=== PATIENT | female | born 1950 | race Caucasian/White ===

== ENCOUNTER 2016-10-06 07:53 | Inpatient (IN) | payer MEDICARE, BC ==
--- NOTE | 2016-09-23 18:01 | HP ---
HISTORY AND PHYSICAL: DATE OF ADMISSION/SURGERY: 10/06/16 PROCEDURE: Left total hip arthroplasty. CHIEF COMPLAINT: Left hip pain. HISTORY OF PRESENT ILLNESS: Ms. Avila is a 66-year-old female with complaints of left hip pain secondary to severe osteoarthritis. She has failed conservative management and has elected to proceed with a left total hip arthroplasty. PAST MEDICAL HISTORY: Hypothyroidism, hypertension, osteoarthritis. PAST SURGICAL HISTORY: Left thumb arthroplasty, left carpal tunnel release, left wrist tendon repair, left hammer toe repair, and oophorectomy. CURRENT MEDICATIONS: 1. Ibuprofen. 2. Levothyroxine. 3. Lisinopril/hydrochlorothiazide. 4. Meclizine. 5. Aspirin. 6. Multivitamin. ALLERGIES: No known drug allergies. FAMILY HISTORY: Breast cancer, lung cancer, ovarian cancer, and heart disease. REVIEW OF SYSTEMS: A complete 14-point review of systems was reviewed with the patient. Positive for hypothyroidism. She never had a blood clot or anesthesia problems. PHYSICAL EXAMINATION GENERAL: She is well developed, well nourished, in no acute distress. VITAL SIGNS: She stands 5 feet 6 inches tall, weighs 165 pounds. Her blood pressure is 152/91. Her heart rate is 73. HEENT: Normocephalic, atraumatic. NECK: Supple. No palpable lymph nodes. Trachea is midline. PULMONARY: The lungs are clear to auscultation bilaterally. No wheezes, rhonchi, or rales. CARDIO: Regular rate and rhythm. Strong S1, S2. No murmurs, gallops, or rubs. ABDOMEN: Soft, nontender, nondistended. NEUROLOGIC: She is alert and oriented x3. Cranial nerves II through XII are intact. MUSCULOSKELETAL: Left lower extremity, the skin is intact. She has limited range of motion with internal and external rotation of the left hip. She walks with a slightly antalgic type gait. Her lower extremity muscle group strengths are intact at 5/5. She has 2+ dorsalis pedis pulses and intact sensation. ASSESSMENT AND PLAN: Ms. Avila is a 66-year-old female with complaints of left hip pain secondary to advanced osteoarthritis. She has elected to proceed with a left total hip arthroplasty. The surgery is scheduled for 10/06/[address] Canas discussed the risks and benefits of the surgery with her today and all of her answers were answered. Percocet, Colace, and Coumadin were sent to her pharmacy for postoperative pain control and DVT prophylaxis. She was instructed not to take the Coumadin prior to the surgery. She was also instructed to stop her aspirin 5 days prior to the surgery. She will follow up with Dr. Canas 2 weeks after the surgery for a postop appointment. JOSE CORNELL [id number]/[facility] #: [id number] MTDD
[~2016-10-06 07:53] MED LIST: Buffered Lidocaine 1% SYR 3ML* 3 ML/SYR SYRINGE INTRADERM ONE; Famotidine IV* 10 MG/ML 2 ML (20 mg) IV ONE; Gabapentin CAP(*) 300 MG PO ONE; Metoclopramide TAB* 10 MG PO ONE; NS 0.9% 1000 ML* 1,000 ML IV SCH; celeCOXIB CAP* 200 MG PO ONE
[2016-10-06] MEDS ORDERED: Famotidine IV* 10 MG/ML 2 ML (20 mg) ONE (08:32)
[2016-10-06] MEDS ORDERED: Gabapentin CAP(*) 300 MG ONE ×2 (08:32→08:55)
[2016-10-06] MEDS ORDERED: ceFAZolin 2 GM PREMIX (*) 2 GM/50 ML BAG IVPB ONE (08:32)
[2016-10-06] MEDS ORDERED: Metoclopramide TAB* 10 MG ONE ×2 (08:32→08:55)
[2016-10-06] MEDS ORDERED: celeCOXIB CAP* 100 MG ONE ×2 (08:32→08:55)
[2016-10-06] MEDS ORDERED: Buffered Lidocaine 1% SYR 3ML* 3 ML/SYR SYRINGE ONE (08:33)
[2016-10-06] MEDS ORDERED: Lidocaine 2% MPF* 2 ML VIAL ONE (09:30)
[2016-10-06] MEDS ORDERED: Ondansetron INJ* 2 MG/ML VIAL ONE (09:30)
[2016-10-06] MEDS ORDERED: Dexamethasone IV* 4 MG/ML 1 ML (4 MG) ONE (09:30)
[2016-10-06] MEDS ORDERED: Propofol* 10 MG/ML 20 ML BTL IV PUSH ONE (09:30)
[2016-10-06] MEDS ORDERED: fentaNYL* 50 MCG/ML 5 ML VIAL (250 MCG VIAL) ONE (09:30)
[2016-10-06] MEDS ORDERED: KETAMINE HCL* 50 MG/ML 10 ML VIAL ONE (09:30)
[2016-10-06] MEDS ORDERED: Midazolam* 1 MG/ML 5 ML VIAL (5 MG) ONE (09:30)
[2016-10-06] MEDS ORDERED: Cisatracurium* 2 MG/ML MDV 10 ML ONE (09:30)
[2016-10-06] MEDS ORDERED: Ketorolac INJ* 30 MG/ML 1 ML VIAL ONE (09:30)
[2016-10-06] MEDS ORDERED: Bupivacaine 0.5% SDV PF* 30 ML VIAL ONE (09:38)
[2016-10-06] MEDS ORDERED: DiMENhydriNATE IV* 50 MG/ML VIAL IV PUSH PRN (11:38)
[2016-10-06] MEDS ORDERED: Ondansetron INJ* 2 MG/ML VIAL IV PRN (11:38)
[2016-10-06] MEDS ORDERED: HYDROmorphone INJ* 1 MG/ML CARPUJECT SYRINGE IV PRN (11:38)
[2016-10-06] MEDS ORDERED: fentaNYL* 50 MCG/ML 2 ML VIAL (100 MCG VIAL) IV PRN (11:38)
[2016-10-06] MEDS ORDERED: Phenylephrine IV* 40 MCG/ML 10 ML SYRINGE ONE (11:50)
[2016-10-06] MEDS ORDERED: EPHEDrine (Pressors)* 50 MG/ML VIAL ONE (11:50)
--- NOTE | 2016-10-06 12:22 | RAD ---
INDICATION: Total left hip replacement surgery, intraoperative study. COMPARISON: Comparison is made with a prior x-ray study of the left hip from May 04, 2016. TECHNIQUE: A AP single portable film of the left hip was obtained in the operating room. FINDINGS: The acetabular prostheses appears to be in normal position. There is a femoral prostheses template present. IMPRESSION: INTRAOPERATIVE CONTROL FILM.
[2016-10-06] MEDS ORDERED: HYDROmorphone INJ* 1 MG/ML CARPUJECT SYRINGE ONE (12:27)
[2016-10-06] MEDS ORDERED: Magnesium Hydroxide LIQ* 30 ML UDC PO PRN (13:03)
[2016-10-06] MEDS ORDERED: Ondansetron TAB* 4 MG PO PRN (13:03)
[2016-10-06] MEDS ORDERED: oxyCODONE/Acetamin 5/325 MG* TAB PO PRN (13:03)
[2016-10-06] MEDS ORDERED: diPHENhydraMINE IV* 50 MG/ML 1 ml VIAL (BENADRYL) IV PRN (13:03)
[2016-10-06] MEDS ORDERED: Bisacodyl SUPP* 10 MG SUPP PR PRN (13:03)
[2016-10-06] MEDS ORDERED: Polyethylene Glycol 3350* 17 GM PACKET PO PRN (13:03)
[2016-10-06] MEDS ORDERED: Acetaminophen TAB* 325 MG PO PRN (13:03)
[2016-10-06] MEDS ORDERED: Morphine INJ* 2 MG/ML 1 ML CARPUJECT IV PRN (13:03)
[2016-10-06] MEDS ORDERED: Meclizine TAB* 12.5 MG PO PRN (13:08)
--- NOTE | 2016-10-06 14:00 | RAD ---
Indication: Left hip arthroplasty 2 views of left hip and an AP view the pelvis and sheath left hip replacement in satisfactory position. No loosening is noted. Pelvic ring is intact. IMPRESSION: LEFT HIP REPLACEMENT IN SATISFACTORY POSITION.
[2016-10-06] MEDS ORDERED: oxyCODONE/Acetamin 5/325 MG* TAB ONE (14:38)
[2016-10-06] MEDS ORDERED: Warfarin TAB(*) 6 MG PO ONE (17:00)
[2016-10-06] MEDS: ceFAZolin 1 GM in Dextrose (*) 1 GM/50 ML BAG IVPB SCH (17:07)
[2016-10-06] MEDS: oxyCODONE/Acetamin 5/325 MG* TAB PO PRN (20:23)
[2016-10-06] MEDS: Docusate CAP* 100 MG PO SCH (20:23)
[2016-10-07] MEDS: ceFAZolin 1 GM in Dextrose (*) 1 GM/50 ML BAG IVPB SCH ×2 (01:09→08:13)
[2016-10-07] MEDS: oxyCODONE TAB* 5 MG TAB PO PRN (01:16)
[2016-10-07] MEDS: Levothyroxine TAB* 75 MCG TAB PO SCH (06:13)
[2016-10-07] MEDS: oxyCODONE/Acetamin 5/325 MG* TAB PO PRN ×3 (07:27→18:16)
--- NOTE | 2016-10-07 07:33 | PN ---
Progress Note - Progress Note SOAP: Subjective: Pt. reports pain is controlled and she is doing well. Objective: LLE - thigh soft, dressing c/d/i. distally nvi with pf/df, full sens lt, 2+ dp pulse. Vital Signs: Temp Pulse Resp BP Pulse Ox 98.3 F 71 18 119/65 99 10/07/16 03:10 10/07/16 03:10 10/07/16 07:27 10/07/16 03:10 10/07/16 03:10 Assessment: 66 yo F pod 1 s/p LTHA Plan: xrays satisfactory. AM labs pending coumadin with lovenox bridge. prn analgesia pt/ot - wbat lle with post hip precautions. possible d/c to home tomorrow with vns
[2016-10-07 08:10] LABS: Hematocrit 27 % (35-47); Hemoglobin 9.3 g/dl (12.0-16.0)
[2016-10-07] MEDS: Hydrochlorothiazide TAB* 25 MG PO SCH (08:14)
[2016-10-07] MEDS: Docusate CAP* 100 MG PO SCH ×2 (08:15→19:39)
[2016-10-07] MEDS: Lisinopril TAB* 10 MG PO SCH (08:15)
[2016-10-07 08:18] LABS: BUN/Creatinine Ratio 16.1 (8-20); Calcium 8.7 mg/dL (8.6-10.3); EGFR African American 124.2 (>60); EGFR Non-African American 96.6 (>60); Potassium 3.8 mmol/L (3.5-5.0)
[2016-10-07] MEDS: Enoxaparin(*) 30 MG/0.3 ML SYR SUBCUT SCH (09:36)
[2016-10-07] MEDS ORDERED: Pneumococcal *Vac Polyvalent 0.5 ML VIAL IM ONE (10:00)
--- NOTE | 2016-10-07 10:16 | OP ---
OPERATIVE REPORT: DATE OF OPERATION: 10/06/16 DATE OF : 52 SURGEON: Becky Canas MD SAW MAKER: JOSE Alexander ANESTHESIOLOGIST: Jonh Putnam MD ANESTHESIA: General. PRE-OP DIAGNOSIS: Severe end-stage degenerative osteoarthritis of the left hip joint. POST-OP DIAGNOSIS: Severe end-stage degenerative osteoarthritis of the left hip joint. OPERATIVE PROCEDURE: Left total hip arthroplasty. HARDWARE USED: This is uncemented Ez total hip hardware. For the cup a Tritanium 50B cluster hole shell with 125 mm cancellous bone screw. A 0 degree Polythene insert Trident x3 32D. For the femur an Accolate TMZF 132 degree neck size 3, and a Biolox delta ceramic V40 femoral head 32 -4. COMPLICATIONS: None. SPECIMENS: Femoral head and acetabular bone reaming sent to pathology. ESTIMATED BLOOD LOSS: 500 mL. INDICATIONS: Brief History/Indication: Ms. Avila is a 66-year-old female with years of increasing ly severe left hip pain. She failed conservative treatment with antiinflammatories, pain medication s, physical therapy, activity modification, and ambulatory assistive devices. Radiographs confirmed severe end-stage arthritis of the left hip joint with [id number] contact. She elected to undergo a left total hip arthroplasty due to continued pain and decreased quality of life. Informed consen t was obtained from the patient. She understood the risks of the procedure included but were not li mited to bleeding, infection, damage to nearby structures, continued pain, need for further surgery, intraoperative fracture, nerve palsy, leg length discrepancy, dislocation, hardware failure, loosen ing, stroke, heart attack, blood clot, and . She wished to proceed. INTRAOPERATIVE FINDINGS: Intraoperatively, the patient was noted to have a shallow dysplastic aceta bulum with complete loss of cartilage. She had anterior osteophyte formation along the acetabulum. Femoral head had significant osteopenia with complete loss of cartilage. DESCRIPTION OF PROCEDURE: Ms. Avila was identified in the preanesthesia unit. Her left lower extre mity was marked as the correct operative side. Informed consent was signed and placed in the chart. The patient was taken to the operating room and placed under general anesthesia without difficulty . A Villatoro catheter was placed. She was placed in the right lateral decubitus position on the PEG b oard. Left lower extremity was prepped and draped in the usual sterile fashion. Preop time-out was made to correctly identify the patient's side and site. Appropriate perioperative antibiotics were given within 1 hour of incision. A 12-cm standard posterior hip incision was made with a 10 blade. This was carried down to the late ral fascial layer. Lateral fascia was then incised in line with the skin incision. Charnley retractor was placed and the posterior aspect of the hip joint was visualized. The pirifor mis and conjoint tendons were identified. These were elevated off the posterolateral capsule using the electrocautery and tagged with two #5 Ethibond. Next, standard posterolateral capsular flap was made with electrocautery and also tagged with two #5 Ethibonds. The hip was carefully dislocated. Lesser troch to center of the femoral head measured 55 mm. An os cillating saw was used to make the appropriate femoral neck cut. The femoral head was sent to patho logy. After appropriate placement of retractors, the acetabulum was easily visualized. There was complete loss of cartilage and a dysplastic shallow acetabulum was noted. Electrocautery was used to remove any soft tissue from the cotyloid notch. The acetabulum was seque ntially reamed up to a size 49. A 49 trial had excellent fit. There was a good bleeding bone bed. The final implant chosen was Tritanium cluster hole shell size 50D. This was impacted into the acet abulum without difficulty. Appropriate anteversion and abduction angle were noted. One 25 mm cance llous bone screw was chosen. This was placed in the superior posterior quadrant for extra stability . A 0 degree polyethylene insert Trident x3 was chosen with 32B size. This was impacted into the a cetabular cup without difficulty. Stability of the liner was checked and noted to be stable. Next, attention was turned to preparation of the femur. After appropriate placement of retractors, the proximal femur was easily visualized. Canal finder and box cut osteotome was used to enter the proximal femur. The femur was sequentially broached up to a size 3. Size 3 broach had excellent fi t and appropriate anteversion. A 132 neck trial was chosen as well as a 32 +0 femoral head. Lesser troch to center of the femoral head measured 60. Therefore, the head was replaced with a 32 -4 tri al. This had satisfactory lesser troch to greater head measurement at a length of 56 mm. The hip w as reduced and taken through range of motion. The hip was stable in all positions. There was appro ximate leg length and soft tissue tension. The hip was carefully dislocated and all trials were carefully removed. Final implant chosen was an Accolade TMZF size 3 with a 132 degree neck. This was impacted into the femoral canal without diff iculty. There was good stability in the anteversion. A 32 -4 ceramic V40 femoral head was chosen. This was impacted onto the femoral neck without difficulty. The lesser troch to the center of the femoral head measured 7 mm. This was deemed to be appropriate. The hip was reduced and taken throu gh a range of motion. The hip was stable in all positions. There was good soft tissue tension and a ppropriate leg length. The previously tagged capsule and tendons were reapproximated to the posterior lateral femur through two trochanteric drill holes. The hip was copiously irrigated with sterile saline. The lateral fa scial layer was closed using interrupted #1 Vicryls. The rest of the incision was closed in a layer ed fashion using 0 and 2-0 Vicryls. Skin was closed using running 3-0 Monocryl and Dermabond. Steri le Adaptic, 4 x 4s, and paper tape were placed over this. The patient's anesthesia was reversed without difficulty. She was taken to the PACU in stable condi tion. Intended weightbearing will be weightbearing as tolerated with posterior hip precautions. Intended DVT prophylaxis will be Coumadin with a Lovenox bridge. [id number]/[facility] #: [id number]
[2016-10-07] MEDS ORDERED: Warfarin TAB(*) 4 MG PO ONE (18:00)
[2016-10-08] MEDS: oxyCODONE TAB* 5 MG TAB PO PRN (04:14)
[2016-10-08] MEDS: Levothyroxine TAB* 75 MCG TAB PO SCH (05:36)
[2016-10-08 06:59] LABS: Hematocrit 29 % (35-47); Hemoglobin 9.6 g/dl (12.0-16.0)
--- NOTE | 2016-10-08 07:38 | PN ---
Progress Note - Progress Note SOAP: Subjective: Pt. is doing well, pain controlled, wants to go home. + BM overnight. Objective: LLE - dressing changed, inc c/d/i. distally nvi. Vital Signs: Temp Pulse Resp BP Pulse Ox 98.0 F 96 16 136/75 99 10/08/16 04:11 10/08/16 04:11 10/08/16 06:14 10/08/16 04:11 10/08/16 04:11 Laboratory Results - last 24 hr 10/07/16 10/07/16 10/07/16 07:22 07:22 07:22 Hgb 9.3 L Hct 27 L INR (Anticoag Therapy) 1.10 Sodium 135 Potassium 3.8 Chloride 102 Carbon Dioxide 27 Anion Gap 6 BUN 10 Creatinine 0.62 Est GFR ( Amer) 124.2 Est GFR (Non-Af Amer) 96.6 BUN/Creatinine Ratio 16.1 Glucose 96 Calcium 8.7 10/08/16 10/08/16 06:46 06:46 Hgb 9.6 L Hct 29 L INR (Anticoag Therapy) 1.64 H Sodium Potassium Chloride Carbon Dioxide Anion Gap BUN Creatinine Est GFR ( Amer) Est GFR (Non-Af Amer) BUN/Creatinine Ratio Glucose Calcium Assessment: 66 yo F pod 2 s/p LTHA Plan: wbat with post hip precautions pt/ot plan d/c to home today after 2nd PT
[2016-10-08] MEDS: Hydrochlorothiazide TAB* 25 MG PO SCH (08:55)
[2016-10-08] MEDS: Docusate CAP* 100 MG PO SCH (08:55)
[2016-10-08] MEDS: oxyCODONE/Acetamin 5/325 MG* TAB PO PRN ×2 (08:55→13:00)
[2016-10-08] MEDS: Lisinopril TAB* 10 MG PO SCH (08:55)
[2016-10-08] MEDS: Enoxaparin(*) 30 MG/0.3 ML SYR SUBCUT SCH (10:00)
[2016-10-08 12:33] VITALS: BP 135/75
[2016-10-08] MEDS ORDERED: Warfarin TAB(*) 6 MG PO SCH (17:00)
--- NOTE | 2016-10-10 02:34 | DS ---
DISCHARGE SUMMARY: DATE OF ADMISSION: 10/06/16 DATE OF DISCHARGE: 10/08/16 ADMISSION DIAGNOSIS: Status post left total hip arthroplasty. DISCHARGE DIAGNOSIS: Status post left total hip arthroplasty. CONSULTATIONS: Physical Therapy and Occupational Therapy. CHIEF COMPLAINT: Left hip pain. HISTORY OF PRESENT ILLNESS: Ms. Avila is a 66-year-old female who underwent an elective left total hip arthroplasty as a result of severe osteoarthritis. [facility] prosthesis in satisfactory position. No lucency was noted a nd pelvic ring was intact. REVIEW OF HOSPITAL COURSE: On postop day #1, H and H was 9.3 and 27 and INR was 1.10. The patient was started on warfarin with a Lovenox bridge. Physical therapy and occupational therapy was starte d on that day and physical therapy was weight bearing as tolerated in the lower left extremity. On postop #2, H and H was obtained and it was 9.6 and 29 respectively with INR of 1.64. The patient continued physical therapy and occupational therapy in the morning. She was declared medically and orthopedically stable to be discharge home. POSTOP MEDICATIONS: 1. Colace 100 mg. 2. Percocet 5/325. 3. Warfarin given at 6 mg on , 4 mg on Wednesday, 2 mg on Wednesday, and 2 mg on Wednesday, to be redrawn on Wednesday. DISCHARGE INSTRUCTIONS: The patient will continue physical therapy at home. We will follow hip precautions and weightbearing as tolerated and will follow up in 10 to 14 days posto p for an office visit with Dr. Canas to have roxana removed. JOSE BLUE [id number]/[facility] #: [id number]
== END 2016-10-08 14:20 | disposition home health service (06) | DRG 470 ==
LOC: AA 07:53 → MERGE 10:00 → SSU 14:59
PROVIDERS: ADMIT Orthopaedic Surgery Adult Reconstructive Orthopaedic Surgery; ATTEND Orthopaedic Surgery Adult Reconstructive Orthopaedic Surgery
PROC: 0SRB04A Replacement of Left Hip Joint with Ceramic on Polyethylene Synthetic Substitute, Uncemented, Open Approach (ICD-10-PCS; principal; 2016-10-06 11:00)
DX: M16.12 Unilateral primary osteoarthritis, left hip (principal); I10 Essential (primary) hypertension; E03.9 Hypothyroidism, unspecified; E78.5 Hyperlipidemia, unspecified; Z82.49 Family history of ischemic heart disease and other diseases of the circulatory system; Z80.3 Family history of malignant neoplasm of breast; Z80.41 Family history of malignant neoplasm of ovary; Z80.1 Family history of malignant neoplasm of trachea, bronchus and lung; Z80.0 Family history of malignant neoplasm of digestive organs; Z82.61 Family history of arthritis; Z82.3 Family history of stroke; K21.9 Gastro-esophageal reflux disease without esophagitis; Z96.692 Finger-joint replacement of left hand
CPT/HCPCS: 36415; 80048; 85014; 85018; 85610; 88304; 88311; 90732; A9270-GY; C1713; C1776; J0690; J1100; J1170; J1650; J1885; J2250; J2405; J2704; J3010

== ENCOUNTER 2019-10-12 08:37 | Day surgery (SDC) | payer MEDICARE, BC ==
[~2019-10-12 08:37] MED LIST changes: -Buffered Lidocaine 1% SYR 3ML* 3 ML/SYR SYRINGE INTRADERM ONE; +Buffered Lidocaine 1% SYRIN* 1 ML/SYRINGE INTRADERM ONE; +Dexamethasone IV* 4 MG/ML 1 ML (4 MG) IV SLOW PU ONE; +Dexamethasone IV* 4 MG/ML 1 ML (4 MG) ONE; +Famotidine IV* 10 MG/ML 2 ML (20 mg) ONE; -Gabapentin CAP(*) 300 MG PO ONE; +Lactated Ringers 1000 ML Bag* 1,000 ML IV SCH; -Metoclopramide TAB* 10 MG PO ONE; -NS 0.9% 1000 ML* 1,000 ML IV SCH; +ceFAZolin 2 GM PREMIX in ORs 2 GM/50 ML BAG ONE; -celeCOXIB CAP* 200 MG PO ONE
[2019-10-12] MEDS ORDERED: Lidocaine 1% INJ* 10 MG/ML 30 ML SDV ONE (09:54)
[2019-10-12] MEDS ORDERED: Dexamethasone IV* 4 MG/ML 1 ML (4 MG) ONE (09:54)
[2019-10-12] MEDS ORDERED: Bupivacaine 0.5% SDV PF* 30ML VIAL ONE (09:54)
[2019-10-12] MEDS ORDERED: Ondansetron INJ* 2 MG/ML VIAL ONE (10:06)
[2019-10-12] MEDS ORDERED: Propofol* 10 MG/ML 20 ML BTL ONE ×2 (10:06→11:38)
[2019-10-12] MEDS ORDERED: Ketorolac INJ* 30 MG/ML 1 ML VIAL ONE (10:06)
[2019-10-12] MEDS ORDERED: Midazolam* 1 MG/ML 5 ML VIAL (5 MG) ONE (10:07)
[2019-10-12] MEDS ORDERED: fentaNYL* 50 MCG/ML 2 ML VIAL (100 MCG VIAL) ONE (10:07)
[2019-10-12] MEDS ORDERED: Naloxone* 0.4 MG/ML 1 ML VIAL IV PRN (11:03)
[2019-10-12] MEDS ORDERED: Ondansetron INJ* 2 MG/ML VIAL IV PRN (11:03)
[2019-10-12] MEDS ORDERED: oxyCODONE/Acetamin 5/325 MG* TAB PO PRN (11:03)
[2019-10-12 12:39] VITALS: BP 114/79
--- NOTE | 2019-10-12 15:16 | OP ---
DATE OF OPERATION: 10/12/19 [facility] DATE OF : 52 SURGEON: Jeff Centeno DPM. SHIPPING SUPPORT CLERK: None. PRE-OP DIAGNOSES: 1. Painful severely contracted hammertoe deformity of the right great toe. 2. Painful and severe hammertoe deformity of the second right toe. 3. Painful and severe hammertoe deformity of the third right toe. 4. Painful and severe hammertoe deformity of the fourth right toe. POST-OP DIAGNOSES: 1. Painful severely contracted hammertoe deformity of the right great toe. 2. Painful and severe hammertoe deformity of the second right toe. 3. Painful and severe hammertoe deformity of the third right toe. 4. Painful and severe hammertoe deformity of the fourth right toe. OPERATIVE PROCEDURE: 1. Correction of right great toe hammertoe deformity with IPJ arthrodesis and screw fixation and extensor tendon lengthening procedure, right great toe. 2. Correction of severe second right hammertoe deformity with EDL tendon lengthening, MTPJ arthrotomy, and PIPJ arthrodesis with K-wire fixation, second digit right foot. 3. Correction of severe second right hammertoe deformity with EDL tendon lengthening, MTPJ arthrotomy, and PIPJ arthrodesis with K-wire fixation, third right toe. 4. Correction of severe second right hammertoe deformity with EDL tendon lengthening, MTPJ arthrotomy, and PIPJ arthrodesis with K-wire fixation, fourth right toe. ANESTHESIA: MAC with local. PATHOLOGY: Degenerative bone from hammertoes 1, 2, 3, and 4 on the right foot. HEMOSTASIS: Pneumatic ankle tourniquet. ESTIMATED BLOOD LOSS: Less than 20 cc. MATERIALS: A 3.0 mm cannulated Sidney screw and 3 smooth 0.062 inch K-wires. INDICATIONS: The patient with severe right forefoot deformity with rigidly contracted hammertoes 1, 2, 3, and 4 causing pain in all closed shoes. It has progressively worsened over the past several years, making it difficult to walk or wear shoes without pain. She opts for surgery at this time to attempt to decrease the deformity, decrease the pain, and improve her ability to ambulate. DESCRIPTION OF PROCEDURE: The patient was brought to the operating room, placed on the operating room table in the supine position. The anesthesia department administered IV sedation and a peripheral nerve block was performed about the right foot with a 1:1 mixture of 1% lidocaine plain and 0.5% Marcaine plain. The right foot was prepped and draped in the usual fashion. The right foot was then exsanguinated with an Esmarch bandage and pneumatic ankle tourniquet was inflated to 250 mmHg above a well-padded right ankle. Attention was directed to the right great toe where a linear incision was made to allow for exposure of the interphalangeal joint. There was a rigid contracture and extensor hallucis longus tendon was lengthened with Z-tendon plasty. A transverse capsulotomy was performed at the interphalangeal joint to allow for exposure of the joint. The head of the proximal phalanx and the base of the distal phalanx were resected in a manner to also address some angular deformity and the power bur was used to smooth the rough edges. The surgical site was flushed with copious amounts of normal sterile saline. The wire was driven to the tip of the great toe and then retrograded proximally across the interphalangeal joint while holding the digit in the rectus position and also approximating the arthrodesis site. The position was checked with a C-arm, and a small incision was made distally for placement of the screw. Using standard technique, a 3.0 mm cannulated Sidney screw was placed from the tip of the great toe across the interphalangeal joint into the proximal phalanx. The arthrodesis site was well approximated and the temporary fixation removed. The arthrodesis site was rigid and appeared in good position. The tendon and the capsular tissues were reapproximated and secured with 4-0 Vicryl. Surgical sites were flushed with copious amounts of normal sterile saline. Subcutaneous tissues were reapproximated with 4-0 Vicryl and the skin was closed with 5-0 nylon at the dorsal and distal incisions. Attention was then directed to the second right digit where a curvilinear incision was made from just proximal to the metatarsophalangeal joint and just distal to the proximal interphalangeal joint. The incision was deepened through the subcutaneous tissues with care being taken to retract neurovascular structures and cauterize the superficial bleeders as needed for exposure of the metatarsophalangeal joint and proximal interphalangeal joint. The extensor delarosa was released. A transverse tenotomy and capsulotomy were performed at the proximal interphalangeal joint and a Z extensor tendon lengthening procedure was performed closer to the metatarsophalangeal joint. A transverse capsulotomy was performed. The proximal phalangeal head was resected as well as the adjacent base of the middle phalanx. The power bur was used to smooth rough edges in preparation for arthrodesis. The surgical site was flushed with copious amounts of normal sterile saline. Next, the McGlamry elevator was needed to free plantar adhesions in the metatarsophalangeal joint. This being done, a smooth 0.062 inch K- wire was driven to the base of the middle phalanx through the tip of the toe and retrograded back through the proximal phalanx and across the metatarsophalangeal joint while holding the digit in corrected position. The position was assessed with the C-arm. The arthrodesis site was checked to make sure it was well approximated and the surgical site was flushed with copious amounts of normal sterile saline. The capsular and tendinous tissues were reapproximated and secured with 4-0 Vicryl, subcutaneous tissues were closed with 4-0 Vicryl, and the skin was closed with 5-0 nylon. The same procedure was then performed in the third right digit where using same technique and fixation with a smooth K-wire and same closure and then the same procedure was performed to the fourth right digit using the same technique and fixation including closure. The positions again all assessed with the C-arm. The wires were bent, cut, and capped. Skin closure with 5-0 nylon. 12 mg of dexamethasone phosphate was infiltrated about the surgical sites and each incision was dressed with Xeroform gauze and a padded sterile dressing was applied and secured with a light Coban wrap. The pneumatic ankle tourniquet was deflated about the right ankle, and after a few moments, the cap refill returned to all 5 digits in the right foot. The dressing was applied in a manner as to be able to assess and monitor the circulatory status to all the digits throughout the initial recovery. Having appeared to have tolerated the procedures and anesthesia well, the patient was transported via cart from the operating room to Recovery in satisfactory condition. Capillary refill intact to all digits of the right foot. [id number]/[facility] #: [id number] [facility]
== END 2019-10-12 13:18 | disposition home or self-care (01) ==
LOC: OREAST 08:37
PROVIDERS: ATTEND Podiatrist Foot Surgery
DX: M20.41 Other hammer toe(s) (acquired), right foot (principal); I10 Essential (primary) hypertension; K21.9 Gastro-esophageal reflux disease without esophagitis; E03.9 Hypothyroidism, unspecified; M19.90 Unspecified osteoarthritis, unspecified site
CPT/HCPCS: 76000; C1713; C1776; J0690; J1100; J1885; J2250; J2405; J2704; J3010; J3490